=== PATIENT | male | born 1970 | race Caucasian/White ===

== ENCOUNTER 2016-07-11 13:24 | Emergency (ER) ==
[2016-07-11 13:54] LABS: MANUAL DIFF NEEDED? NO
[2016-07-11 13:56] LABS: URINE CULTURE NEEDED? NO; URINE MICRO REVIEW NEEDED? NO; URINE SOURCE CLEAN CATCH
[2016-07-11 13:59] LABS: BILIRUBIN URINE NEGATIVE (NEGATIVE); BLOOD URINE NEGATIVE (NEGATIVE); COLOR YELLOW; GLUCOSE URINE NEGATIVE (NEGATIVE); LEUKOCYTES URINE NEGATIVE (NEGATIVE); NITRITE URINE NEGATIVE (NEGATIVE); PH URINE 5.5; PROTEIN URINE NEGATIVE (NEGATIVE); SP GRAVITY URINE 1.026; TURBIDITY URINE CLEAR (CLEAR); UROBILINOGEN URINE 2 mg/dL (NORMAL)
[2016-07-11 13:59] LABS: BASO% 0.4 % (0.0-0.8); EOS% 2.7 % (0.0-10.0); HEMATOCRIT 44.5 % (42.0-52.0); HEMOGLOBIN 15.5 g/dL (14.0-18.0); IMM GRAN# 0.02 X1000 (0.0-0.04); IMM GRAN% 0.3 % (0.0-0.5); LYMPH# 2.91 X1000 (1.2-3.4); MCH 32.8 PG (27-31); MCHC 34.8 g/dL (33-37); MCV 94.1 FL (81-99); MONO# 0.69 X1000 (0.11-0.59); MONO% 9.2 % (1.7-9.3); MPV 10.2 FL (7.4-10.4); NEUT% 48.4 % (42.2-75.2); PLT 247 X1000 (130-400); RBC 4.73 XMIL (4.7-6.1)
[2016-07-11 14:00] LABS: UR EPITHELIAL CELLS <10 /HPF (<10); URINE BACTERIA NEGATIVE /HPF; URINE RBC <10 /HPF (<10); URINE WBC <10 /HPF (<10)
[2016-07-11 14:24] LABS: AGAP 11; ALBUMIN 4.2 g/dL (3.5-5.0); ALKALINE PHOSPHATASE 77 U/L (32-122); AMYLASE 33 U/L (20-200); BUN 15 mg/dL (8-22); CALCIUM 8.7 mg/dL (8.8-10.2); CHLORIDE 100 mmol/L (98-107); COSMO 280; GOT 30 U/L (10-34); GPT 53 U/L (10-44); LIPASE 31 U/L (13-60); POTASSIUM 3.3 mmol/L (3.5-5.1); SODIUM 140 mmol/L (136-145); TCO2 29 mmol/L (25-35); TOTAL BILIRUBIN 0.31 mg/dL (0.20-1.00); TOTAL PROTEIN 7.1 g/dL (6.3-8.3)
[2016-07-11] MEDS ORDERED: NS 1,000 ML IV ONE (16:36)
[2016-07-11] MEDS ORDERED: ZOFRAN IV ONE (16:36)
[2016-07-11] MEDS ORDERED: MORPHINE IV ONE ×2 (16:36→19:48)
--- NOTE | 2016-07-11 16:49 | PROVIDER DOCUMENTATION ---
HPI-Abdominal Pain/GI Problem - General Source: patient <Juan A Haro - Last Filed: 07/11/16 18:49> - History of Present Illness-ABD Abdominal Pain Onset Location: reports: periumbilical Pain Radiation: reports: no radiation Quality of Pain: reports: aching Severity in ED: reports: mild Onset/Duration: reports: 24 hours ago Timing: reports: still present Modifying Factors: improves with: nothing Associated Symptoms: reports: denies symptoms Bruising or Bleeding Gums?: No Similar Symptoms Previously?: No Recently seen or treated by another doctor?: No <Mirtha Aviles - Last Filed: 07/11/16 19:26> - General Chief Complaint: Abdominal Pain Stated Complaint: POSS HERNIA Time Seen by Provider: 07/11/16 16:19 Allergies/Adverse Reactions: Patient Allergies Allergy/AdvReac Type Severity Reaction Status Date / Time hydromorphone HCl * Allergy ANAPHYLAXIS Verified 07/11/16 18:10 [From Dilaudid] Home Medications: Atenolol 25 mg PO DAILY 06/23/15 Omeprazole [Prilosec] 20 mg PO DAILY 07/24/15 - History of Present Illness-ABD Nature of Presenting Problems: 45 year old WM presents with a 1 day history of periumbilical pain. pt reports he bent over a rail and has had the pain since that time. pt reports he mat have a hernia and has a bulging area to his left lower abdomen. pt denies fever , chills, nausea,vomiting, diarrhea, last BM this am, normal. (Juan A Haro) Review of Systems - Adult - REVIEW OF SYSTEMS - ADULT Constitutional: denies: chills, fever Eyes: reports: no symptoms reported Ears, Nose, Mouth & Throat: reports: no symptoms reported Cardiovascular: denies: chest pain, palpitations Respiratory: denies: cough, shortness of breath Gastrointestinal: reports: abdominal pain. denies: nausea, vomiting Genitourinary: denies: dysuria, hematuria Musculoskeletal: reports: no symptoms reported Integumentary: reports: no symptoms reported Neurological: reports: no symptoms reported Psychiatric: reports: no symptoms reported Endocrine: reports: no symptoms reported Hematologic/Lymphatic: reports: no symptoms reported Allergic/Immunologic: reports: no symptoms reported All Other Systems: Reviewed and Negative <Mirtha Aviles - Last Filed: 07/11/16 19:26> Past History - Adult - PAST MEDICAL HISTORY-ADULT Major Childhood Illnesses: reports: denies history Cardiovascular: reports: other (rapid heart beat) Respiratory: reports: COPD Gastrointestinal: reports: GERD Obstetrical/Gynecological: reports: denies history Genitourinary: reports: denies history Musculoskeletal: reports: denies history Neurological: reports: other (vertigo) Endocrine/Immune: reports: denies history Other Conditions: reports: denies history - PRIOR SURGERIES/PROCEDURES Surgical/Procedure History: reports: other (cardiac ablation; right rotator cuff repair) - IMMUNIZATION STATUS Childhood Immunizations: UTD Flu Vaccine: UTD - FAMILY HISTORY Family History: reviewed, not pertinent <Juan A Haro - Last Filed: 07/11/16 18:49> - PAST MEDICAL HISTORY-ADULT Review of Records: reports: Nursing Assessment Review, Medications Reviewed Major Childhood Illnesses: reports: denies history Cardiovascular: reports: arrhythmia, HTN Respiratory: reports: COPD Gastrointestinal: reports: GERD Additional History: vertigo - PRIOR SURGERIES/PROCEDURES Surgical/Procedure History: reports: tonsillectomy, orthopedic (extremity), other (cardiac ablasion) - IMMUNIZATION STATUS Childhood Immunizations: See Nurse Assessment Flu Vaccine: See Nurse Assessment - SOCIAL HISTORY Smoking: cigarettes, greater than 1 pack/day Provider spent 3-5 mins advising pt. on dangers of tobacco.: Discussed manners to quit use, and f/u contacts for add'l counseling. Substance Use: none/never Alcohol Use Frequency: never <Mirtha Aviles - Last Filed: 07/11/16 19:26> Physical Exam-General - PHYSICAL EXAM-ADULT Initial Vital Signs Reviewed: Yes - CONSTITUTIONAL General Appearance: appears well, alert, no apparent distress - RESPIRATORY Respiratory: chest non-tender, lungs clear, normal breath sounds - CARDIOVASCULAR Cardiovascular: normal peripheral pulses, regular rate, rhythm, no edema - GASTROINTESTINAL (ABDOMEN) Abdominal Exam: normal bowel sounds, tenderness (moderate periumbilical tenderness), hernia - SKIN Integumentary: normal color, normal turgor, warm/dry - PSYCHIATRIC Psych/Mental Status: normal mood/affect, normal thought content, normal thought process, oriented x 3 <Mirtha Aviles - Last Filed: 07/11/16 19:26> Progress <Juan A Haro Last Filed: 07/11/16 18:49> - CT/MRI 1 CT Study: Abdomen, Pelvis Impression: Abnormal CT Results: small umbilical hernia: Dr. Boyd <Mirtha Aviles - Last Filed: 07/11/16 19:26> - PLAN OF CARE/RESULTS Progress/Plan/Lab Results: plan of care: imaging, labs, medications Medications will be ordered due to pain. Orders Category Date Time Status IV Insertion ORDERED Care 07/11/16 16:27 Active ABDOMEN/PELVIS W/O CONTRAST [CT] Stat Exams 07/11/16 18:44 Taken AMYLASE [CHEM] Stat Lab 07/11/16 13:40 Completed CBC WITH ELECTRONIC DIFF [HEME] Stat Lab 07/11/16 13:40 Completed COMPREHENSIVE METABOLIC PANEL [CHEM] Stat Lab 07/11/16 13:40 Completed LIPASE [CHEM] Stat Lab 07/11/16 13:40 Completed UA Reflex [URINALYSIS W/POSS RFLX CULT] [URINALYSIS] Lab 07/11/16 13:50 Completed Stat 0.9% Sodium Chloride Inj [Ns] 1,000 ml Med 07/11/16 16:36 Discontinued IV 999 mls/hr Hydromorphone [Dilaudid] Med 07/11/16 18:43 Discontinued 1 mg IV NOW ONE Morphine Med 07/11/16 16:36 Discontinued 4 mg IV NOW ONE Ondansetron [Zofran] Med 07/11/16 16:36 Discontinued 4 mg IV NOW ONE Laboratory Tests 07/11/16 07/11/16 07/11/16 13:40 13:40 13:50 WBC 7.46 RBC 4.73 Hgb 15.5 Hct 44.5 MCV 94.1 MCH 32.8 H MCHC 34.8 RDW Std Deviation 13.9 Plt Count 247 MPV 10.2 Immature Gran % (Auto) 0.3 Neut % (Auto) 48.4 Lymph % (Auto) 39.0 [place] % (Auto) 9.2 Eos % (Auto) 2.7 Baso % (Auto) 0.4 Immature Gran # (Auto) 0.02 Neut # (Auto) 3.61 Lymph # (Auto) 2.91 [place] # (Auto) 0.69 H Eos # (Auto) 0.20 Baso # (Auto) 0.03 Sodium 140 Potassium 3.3 L Chloride 100 Carbon Dioxide 29 Anion Gap 11 BUN 15 Creatinine 1.1 Estimated GFR/1.73 m2 > 60 BUN/Creatinine Ratio 14 Glucose 102 Calculated Osmolality 280 Calcium 8.7 L Total Bilirubin 0.31 AST 30 ALT 53 H Alkaline Phosphatase 77 Total Protein 7.1 Albumin 4.2 Globulin 2.9 Albumin/Globulin Ratio 1.4 Amylase 33 Lipase 31 Urine Source CLEAN CATCH Urine Color YELLOW Urine Turbidity CLEAR Urine pH 5.5 Ur Specific [place] 1.026 Urine Protein NEGATIVE Ur Glucose (Stick) NEGATIVE Ur Ketones (Stick) NEGATIVE Urine Blood NEGATIVE Urine Nitrite NEGATIVE Urine Bilirubin NEGATIVE Urobilinogen Dipstick 2 A Urine Leukocytes NEGATIVE Urine WBC (Auto) <10 Urine RBC (Auto) <10 U Epithel Cells (Auto) <10 Urine Bacteria (Auto) NEGATIVE Vital Signs - 24 hr 07/11/16 07/11/16 13:36 18:58 Temperature 97.7 F Pulse Rate 81 Respiratory 18 Rate Blood Pressure 147/77 127/69 O2 Sat by Pulse 95 Oximetry Pt given results and will be d/c home w/ rx to follow up with PCP. Pt verbally understood instructions. PT remained clinically stable throughout the course of the ED stay and will return if symptoms worsen. (Mirtha Aviles) Departure <Juan A Haro - Last Filed: 07/11/16 18:49> - Departure Time of Disposition Order: 19:25 Certified Medical Emergency: Emergent <Mirtha Aviles - Last Filed: 07/11/16 19:26> - Departure DIAGNOSIS: Umbilical hernia Qualifiers: Obstruction and gangrene presence: without obstruction or gangrene Qualified Code(s): K42.9 - Umbilical hernia without obstruction or gangrene Disposition: HOME 01 Condition: Good Additional Instructions: Follow up with primary care doctor. Return to ED for any new or worsening symptoms ED Follow Up Instructions: You have been treated by a care provider in the Emergency Department. These instructions are being provided to you so you can have an understanding of how to care for yourself upon discharge. Upon discharge from the Emergency Department, you are responsible for making arrangements for follow-up care by a physician of your choice. Take all prescribed medications as directed. Return to the Emergency Department immediately for any new or worsening symptoms. You may call the Physician Referral phone number at [phone] to obtain a list of Physicians who are taking new patients. Prescriptions: Meloxicam [Mobic] 15 mg PO DAILY PRN #30 tablet PRN Reason: Pain Hydrocodone/Acetaminophen [[place] 7.5-325 Tablet] 1 each PO Q4-6H PRN PRN #20 tablet PRN Reason: Pain Referrals: Hannah Escamilla CRNP [Primary Care Provider] - Attestation - Physician/ Mid-level Attestation Patient care was provided by Mid-level provider (PRODUCT OWNER/PA):: Yes Mid-level provider:: Juan A Haro Mid-level documentation review:: The Mid-level provider documentation, treatment plan and medical decision making was reviewed by the physician who agrees with all treatment and medical decision making by the P. <Juan A Haro - Last Filed: 07/11/16 18:49> - Scribe Verification/Attestation Scribe:: Mirtha Aviles Acting as Scribe for:: Steven Boyd Scribe documention review:: This chart was documented by a scribe and accurately reflects the service the provider performed and the decisions made by the provider. <Mirtha Aviles - Last Filed: 07/11/16 19:26> Physician Attestation - Physician Attestation I, the provider, attest to the following statement:: Steven Boyd Physician documentation Attestation:: This documentation recorded by the scribe accurately reflects the service I personally performed and the decisions made by me. <Mirtha Aviles - Last Filed: 07/11/16 19:26>
[2016-07-11] MEDS ORDERED: DILAUDID IV ONE (18:43)
[2016-07-11 18:59] VITALS: BP 127/69
--- NOTE | 2016-07-12 08:51 | Diag Imaging Result Document ---
PROCEDURE NAME: ABDOMEN/PELVIS W/O CONTRAST - 07/11/2016 CT ABDOMEN AND PELVIS, 07/11/2016: COMPARISON: 12/19/2015. FINDINGS: The lung bases are clear and the heart size is normal. No radiodense renal stones. No hydronephrosis or hydroureter. Stable densities in the inferior right lobe of the liver, nonspecific but benign. Stable diverticulosis of the sigmoid colon. No bowel obstruction or inflammation. Normal appendix. Urinary bladder, prostate, and rectum are normal. Bony structures are intact. IMPRESSION: No acute disease or change from prior.
== END 2016-07-11 20:00 | disposition home or self-care (01) ==
LOC: ED 13:24
DX: K42.9 Umbilical hernia without obstruction or gangrene (principal); R10.33 Periumbilical pain; J44.9 Chronic obstructive pulmonary disease, unspecified; K21.9 Gastro-esophageal reflux disease without esophagitis; I10 Essential (primary) hypertension; F17.210 Nicotine dependence, cigarettes, uncomplicated; Z71.6 Tobacco abuse counseling; Z79.899 Other long term (current) drug therapy
CPT/HCPCS: 36415; 74176; 80053; 81001; 82150; 83690; 85025; 96374; 96376; J1170; J2270; J2405; J7030